=== PATIENT | female | born 1965 ===

== ENCOUNTER 2022-09-29 07:45 | Inpatient (IN) | payer OTHER ==
[~2022-09-29] VITALS: Ht 162.6 cm; Wt 104.3 kg
[2022-09-29] MEDS ORDERED: LOSARTAN-HCTZ1 EAC1 PO (08:35)
[2022-09-29] MEDS ORDERED: ZIAC 10/6.25 MG1 TAB PO (08:35)
[2022-09-29] MEDS ORDERED: PREDISONE PO (08:37)
[2022-09-29] MEDS ORDERED: HUMIRA40 MG/0.2 SQ (08:37)
[2022-09-29] MEDS ORDERED: METROTEXATE PO (08:39)
[2022-10-05] MEDS ORDERED: DUI500 PO (08:54)
[2022-10-05] MEDS ORDERED: ELIQUIS2.5 MG PO (08:54)
[2022-10-05] MEDS ORDERED: PERCOCET 5-3251 EACH PO (08:54)
[2022-10-06] MEDS ORDERED: PERCOCET 5-3251 EACH PO (16:29)
== END 2022-10-06 20:14 | DRG 470 ==
LOC: SURH 10-04 06:00 → O/R 10-04 06:00 → SURH 10-04 20:25
PROVIDERS: ADMIT Orthopaedic Surgery; ATTEND Orthopaedic Surgery
PROC: 0SRD0J9 Replacement of Left Knee Joint with Synthetic Substitute, Cemented, Open Approach (ICD-10-PCS; principal; 2022-10-04 19:30)
DX: M17.12 Unilateral primary osteoarthritis, left knee (principal); M22.12 Recurrent subluxation of patella, left knee; E66.8 Other obesity; I10 Essential (primary) hypertension